=== PATIENT | female | born 1960 | race Hispanic/Latino ===

== ENCOUNTER 2024-10-13 20:48 | Emergency (ER) | payer OTHER ==
[2024-10-13] MEDS ORDERED: Lidocaine 1% (PF) 30 ML VIAL ONE (21:26)
[2024-10-13] MEDS ORDERED: Bacitracin 1 PK ONE (21:40)
== END 2024-10-13 22:00 | disposition home or self-care (01) ==
LOC: NAV ERS 20:48
DX: S61.412A Laceration without foreign body of left hand, initial encounter (principal); F17.210 Nicotine dependence, cigarettes, uncomplicated; W05.0XXA Fall from non-moving wheelchair, initial encounter; Y92.524 Gas station as the place of occurrence of the external cause
CPT/HCPCS: 12001; 99283